=== PATIENT | female | born 1975 | race Caucasian/White ===

== ENCOUNTER 2020-07-09 04:49 | Emergency (ER) | payer BC ==
[2020-07-09] MEDS ORDERED: Ketorolac 60 MG/2 ML SDV IM ONE (04:54)
--- NOTE | 2020-07-09 07:20 | ER ---
DATE SEEN: 07/09/2020 CHIEF COMPLAINT: Head injury. HISTORY OF PRESENT ILLNESS: A 44-year-old female who fell and hit her head. She was brought in by the shag truck driver complaining of a headache. There is no loss of consciousness. She has been drinking tonight. MEDICATIONS: Not on any blood thinners. ALLERGIES: None. PHYSICAL EXAMINATION: VITAL SIGNS: Blood pressure 116/48, pulse is normal, temp is 97.6. HEENT: Head is atraumatic. EYES: Normal. CHEST: Clear. MENTAL STATUS: Alert. NEUROLOGIC: No focal findings. IMAGING: CT head and cervical spine negative. IMPRESSION: 1. Head injury, mild. 2. Alcohol intoxication. PLAN: 60 mg Toradol IM. Discharged home. Follow up paddison /[id number] RIVER/DENISSE
== END 2020-07-09 09:09 | disposition home or self-care (01) ==
LOC: FB.ED 04:49
DX: S09.90XA Unspecified injury of head, initial encounter (principal); F10.129 Alcohol abuse with intoxication, unspecified; W18.09XA Striking against other object with subsequent fall, initial encounter
CPT/HCPCS: 70450; 72125; 96372; 99283; J1885